=== PATIENT | male | born 1965 | race Two or more races ===

== ENCOUNTER → 2024-11-10 | Emergency (ER) | payer SELFPAY ==
[~2024-11-10] VITALS: Ht 172.7 cm; Wt 70.3 kg
[2024-11-10 23:34] VITALS: BP 125/70; TEMP 98.2; O2SAT 98
== END | disposition home or self-care (01) ==
LOC: ER 18:18
DX: S13.4XXA Sprain of ligaments of cervical spine, initial encounter (principal); F17.290 Nicotine dependence, other tobacco product, uncomplicated; R07.9 Chest pain, unspecified; R10.2 Pelvic and perineal pain; V49.40XA Driver injured in collision with unspecified motor vehicles in traffic accident, initial encounter; Y93.89 Activity, other specified; Y92.488 Other paved roadways as the place of occurrence of the external cause; Y99.8 Other external cause status
CPT/HCPCS: 71045-TC; 72125-TC; 72170-TC